=== PATIENT | male | born 1930 | race Caucasian/White ===

== ENCOUNTER 2017-01-07 12:28 | Emergency (ER) | payer MEDICARE, OTHER ==
[~2017-01-07] VITALS: Ht 177.8 cm; Wt 75.0 kg
[~2017-01-07 12:28] MED LIST: AMLO10TA2 PO; ASCO10004 PO; ATEN25TA PO; CALC625T13 PO; CIPR250T27 PO; ENOX60SY4 SQ; ENOX80SY5 SQ; GLIP5TAB22 PO; HYDR-3240 PO; METF500T4 PO; OXYC-302 PO; POTA10CA PO; TAMS0.4C2 PO; VITA100022 PO; WARF2.5T73 PO; WARF5TAB7 PO; [UNRECOGNIZED DRUG - OTHER] PO; [UNRECOGNIZED DRUG - OTHER] PO
[2017-01-07 13:49] LABS: ASPARTATE AMINO TRANSFERASE 5 U/L (15-37); BLOOD UREA NITROGEN 71 mg/dL (7-18)
[2017-01-07 13:58] LABS: DIFF TOTAL CELLS COUNTED 100 CELL DIFF
[2017-01-07 13:59] LABS: VERIFY COUNTS? YES
[2017-01-07 14:00] LABS: ANISOCYTOSIS 1+; HYPOCHROMIA 1+; MICROCYTOSIS 1+
[2017-01-07 14:02] LABS: LARGE PLATELETS 1+
[2017-01-07 15:20] VITALS: BP 148/55
== END 2017-01-07 15:53 | disposition home or self-care (01) ==
LOC: ED 15:40
DX: M17.12 Unilateral primary osteoarthritis, left knee (principal); E87.5 Hyperkalemia; M10.9 Gout, unspecified; N18.9 Chronic kidney disease, unspecified; Z86.718 Personal history of other venous thrombosis and embolism; Z85.9 Personal history of malignant neoplasm, unspecified
CPT/HCPCS: 36415; 80053; 84550; 85025

== ENCOUNTER 2017-02-10 09:20 | Inpatient (IN) | payer MEDICARE ==
[~2017-02-10] VITALS: Ht 177.8 cm; Wt 87.7 kg
[2017-02-10] MEDS ORDERED: SODIUM CHLORIDE 0.9% 1,000 ML IV ONE (09:26)
[2017-02-10] MEDS ORDERED: SODIUM CHLORIDE FLUSH 10ML SYR IVF ONE (09:30)
[2017-02-10 10:49] LABS: ASPARTATE AMINO TRANSFERASE 17 U/L (15-37)
[2017-02-10 10:51] LABS: BLOOD UREA NITROGEN 134 mg/dL (7-18)
[2017-02-10] MEDS ORDERED: CALCIUM GLUCONATE 0.46MEQ/1ML IVPush ONE (11:00)
[2017-02-10] MEDS ORDERED: SODIUM ACETATE 150 MEQ in DEXTROSE 5% 1,000 ML IV SCH (11:00)
[2017-02-10 11:06] LABS: ANISOCYTOSIS 1+; MICROCYTOSIS 1+; POIKILOCYTOSIS 1+
[2017-02-10] MEDS ORDERED: LEVO88TA4 PO (11:27)
[2017-02-10] MEDS ORDERED: CALCIUM GLUCONATE 4.6 MEQ in SODIUM CHLORIDE 0.9% 50 ML IV ONE (11:30)
[2017-02-10 13:03] VITALS: BP 114/58
[2017-02-10] MEDS ORDERED: POLYETHYLENE GLYCOL 17 GM PACKET PO PRN (13:30)
[2017-02-10] MEDS ORDERED: BISACODYL 10 MG SUPP PR PRN (13:30)
[2017-02-10] MEDS ORDERED: ACETAMINOPHEN 325 MG TABLET PO PRN (13:30)
[2017-02-10] MEDS ORDERED: DOCUSATE 100 MG CAPSULE PO PRN (13:30)
[2017-02-10 16:17] LABS: BLOOD UREA NITROGEN 134 mg/dL (7-18)
[2017-02-10] MEDS: INSULIN ASPART 100 UNITS/ML, PEN SQ-INSULIN SCH ×2 (17:33→21:30)
[2017-02-10] MEDS: HEPARIN 5,000 UNITS/ML, 1ML SQ SCH (17:33)
[2017-02-10] MEDS: SODIUM ACETATE 150 MEQ in DEXTROSE 5% 1,000 ML IV SCH (19:09)
[2017-02-10 19:17] VITALS: BP 122/67
[2017-02-11] MEDS: HEPARIN 5,000 UNITS/ML, 1ML SQ SCH ×4 (01:18→17:00)
[2017-02-11] MEDS: SODIUM ACETATE 150 MEQ in DEXTROSE 5% 1,000 ML IV SCH ×4 (01:18→23:15)
[2017-02-11 02:17] VITALS: BP 124/63
[2017-02-11] MEDS: LEVOTHYROXINE 88 MCG TABLET PO SCH (05:52)
[2017-02-11 06:23] LABS: ASPARTATE AMINO TRANSFERASE 8 U/L (15-37)
[2017-02-11 06:32] LABS: BLOOD UREA NITROGEN 116 mg/dL (7-18)
[2017-02-11] MEDS: INSULIN ASPART 100 UNITS/ML, PEN SQ-INSULIN SCH ×4 (08:10→20:45)
[2017-02-11 08:47] VITALS: BP 119/57
[2017-02-11 14:46] VITALS: BP 116/75
[2017-02-11 15:12] LABS: OCCBLD OBC PASS
[2017-02-11] MEDS ORDERED: MAGNESIUM SULFATE PMX 2GM/50ML 50 ML IV ONE (18:00)
[2017-02-11 19:27] VITALS: BP 119/60
[2017-02-12] VITALS (12 sets, daily range): BP systolic 125–152; BP diastolic 57–78
[2017-02-12] MEDS: HEPARIN 5,000 UNITS/ML, 1ML SQ SCH ×3 (01:00→17:00)
[2017-02-12] MEDS ORDERED: TRAZODONE 50MG TABLET PO ONE (01:30)
[2017-02-12] MEDS: SODIUM ACETATE 150 MEQ in DEXTROSE 5% 1,000 ML IV SCH (04:34)
[2017-02-12] MEDS: LEVOTHYROXINE 88 MCG TABLET PO SCH (04:47)
[2017-02-12 05:43] LABS: PTH INTACT INTERPRETATION ** Comment **
[2017-02-12 06:09] LABS: BLOOD UREA NITROGEN 82 mg/dL (7-18)
[2017-02-12 06:14] LABS: ASPARTATE AMINO TRANSFERASE 8 U/L (15-37)
[2017-02-12 07:14] LABS: PARATHYROID HORMONE INTACT 221.2 pg/mL (14-72)
[2017-02-12] MEDS: INSULIN ASPART 100 UNITS/ML, PEN SQ-INSULIN SCH ×4 (08:24→20:56)
[2017-02-12] MEDS ORDERED: DARBEPOETIN 100 MCG/ML SQ SCH (10:30)
[2017-02-12] MEDS ORDERED: ERGOCALCIFEROL 50,000 UNIT CAPSULE PO SCH (10:30)
[2017-02-12] MEDS: SODIUM CHLORIDE 0.9% 1,000 ML IV SCH (16:48)
[2017-02-13] MEDS: HEPARIN 5,000 UNITS/ML, 1ML SQ SCH ×4 (00:30→23:59)
[2017-02-13 02:46] VITALS: BP 131/67
[2017-02-13] MEDS: SODIUM CHLORIDE 0.9% 1,000 ML IV SCH ×2 (02:50→13:52)
[2017-02-13 02:51] LABS: OCCBLD OBC PASS
[2017-02-13 05:16] LABS: ASPARTATE AMINO TRANSFERASE 13 U/L (15-37); BLOOD UREA NITROGEN 67 mg/dL (7-18)
[2017-02-13] MEDS: LEVOTHYROXINE 88 MCG TABLET PO SCH (06:25)
[2017-02-13 07:00] VITALS: BP 114/63
[2017-02-13] MEDS: INSULIN ASPART 100 UNITS/ML, PEN SQ-INSULIN SCH ×4 (07:00→20:05)
[2017-02-13 13:28] VITALS: BP 130/71
[2017-02-13 18:11] VITALS: BP 143/66
[2017-02-14 00:59] VITALS: BP 101/49
[2017-02-14] MEDS: LEVOTHYROXINE 88 MCG TABLET PO SCH (05:54)
[2017-02-14 06:02] LABS: ASPARTATE AMINO TRANSFERASE 9 U/L (15-37); BLOOD UREA NITROGEN 58 mg/dL (7-18)
[2017-02-14] MEDS: INSULIN ASPART 100 UNITS/ML, PEN SQ-INSULIN SCH ×4 (07:00→21:13)
[2017-02-14 07:20] VITALS: BP 133/56
[2017-02-14] MEDS: SODIUM CHLORIDE 0.9% 1,000 ML IV SCH ×3 (08:58→17:30)
[2017-02-14] MEDS: CALCITRIOL 0.25 MCG CAPSULE PO SCH (08:58)
[2017-02-14] MEDS: HEPARIN 5,000 UNITS/ML, 1ML SQ SCH ×2 (08:59→17:31)
[2017-02-14 12:15] VITALS: BP 151/83
[2017-02-14 20:00] VITALS: BP 156/64
[2017-02-14] MEDS: SODIUM BICARBONATE 650 MG TABLET PO SCH (21:13)
[2017-02-15] MEDS: HEPARIN 5,000 UNITS/ML, 1ML SQ SCH ×3 (01:08→17:55)
[2017-02-15 02:00] VITALS: BP 146/81
[2017-02-15] MEDS: SODIUM CHLORIDE 0.9% 1,000 ML IV SCH ×3 (03:22→20:06)
[2017-02-15] MEDS: LEVOTHYROXINE 88 MCG TABLET PO SCH (05:24)
[2017-02-15 06:11] LABS: BLOOD UREA NITROGEN 49 mg/dL (7-18)
[2017-02-15 06:29] LABS: DIFF TOTAL CELLS COUNTED 100 CELL DIFF
[2017-02-15 06:31] LABS: VERIFY COUNTS? YES
[2017-02-15 06:33] LABS: ANISOCYTOSIS 2+; SCHISTOCYTES 1+; SPHEROCYTES 1+
[2017-02-15 06:34] LABS: POLYCHROMASIA 1+
[2017-02-15 06:35] LABS: LARGE PLATELETS 1+
[2017-02-15] MEDS: INSULIN ASPART 100 UNITS/ML, PEN SQ-INSULIN SCH ×4 (07:00→20:42)
[2017-02-15 07:12] VITALS: BP 127/48
[2017-02-15] MEDS: SODIUM BICARBONATE 650 MG TABLET PO SCH ×2 (08:45→20:42)
[2017-02-15] MEDS ORDERED: SODIUM PHOSPHATE 20 MMOL in SODIUM CHLORIDE 0.9% 500 ML IV ONE (09:00)
[2017-02-15 13:12] VITALS: BP 158/63
[2017-02-15 20:00] VITALS: BP 166/63
[2017-02-16] MEDS: HEPARIN 5,000 UNITS/ML, 1ML SQ SCH ×2 (01:32→08:19)
[2017-02-16 02:00] VITALS: BP 128/54
[2017-02-16 05:40] LABS: BLOOD UREA NITROGEN 47 mg/dL (7-18)
[2017-02-16] MEDS: LEVOTHYROXINE 88 MCG TABLET PO SCH (05:48)
[2017-02-16] MEDS: SODIUM CHLORIDE 0.9% 1,000 ML IV SCH (05:48)
[2017-02-16 06:12] LABS: DIFF TOTAL CELLS COUNTED 100 CELL DIFF
[2017-02-16 06:15] LABS: ANISOCYTOSIS 2+; POLYCHROMASIA 1+; VERIFY COUNTS? YES
[2017-02-16 06:17] LABS: LARGE PLATELETS 1+; SCHISTOCYTES 1+
[2017-02-16 06:51] VITALS: BP 157/66
[2017-02-16] MEDS: INSULIN ASPART 100 UNITS/ML, PEN SQ-INSULIN SCH ×2 (07:00→11:42)
[2017-02-16] MEDS: CALCITRIOL 0.25 MCG CAPSULE PO SCH (08:14)
[2017-02-16] MEDS: SODIUM BICARBONATE 650 MG TABLET PO SCH (08:16)
[2017-02-16] MEDS ORDERED: CEFDINIR 300 MG CAPSULE PO SCH (09:00)
[2017-02-16] MEDS ORDERED: CEFD300C37 PO (13:42)
[2017-02-16] MEDS ORDERED: SODI650T PO (13:47)
[2017-02-16 13:49] VITALS: BP 165/69
[2017-02-16] MEDS ORDERED: SODIUM BICARBONATE 650 MG TABLET PO SCH (21:00)
== END 2017-02-16 15:05 | DRG 682 ==
LOC: ED 10:59 → EDIP 11:00 → ED 11:14 → 4EST 12:15
PROVIDERS: ADMIT Hospitalist; ATTEND Hospitalist
PROC: 30233N1 Transfusion of Nonautologous Red Blood Cells into Peripheral Vein, Percutaneous Approach (ICD-10-PCS; principal; 2017-02-12)
DX: N17.0 Acute kidney failure with tubular necrosis (principal); E43 Unspecified severe protein-calorie malnutrition; E87.2 Acidosis; I13.0 Hypertensive heart and chronic kidney disease with heart failure and stage 1 through stage 4 chronic kidney disease, or unspecified chronic kidney disease; I50.30 Unspecified diastolic (congestive) heart failure; E46 Unspecified protein-calorie malnutrition; N18.4 Chronic kidney disease, stage 4 (severe); E87.5 Hyperkalemia; E11.649 Type 2 diabetes mellitus with hypoglycemia without coma; D50.0 Iron deficiency anemia secondary to blood loss (chronic); E03.9 Hypothyroidism, unspecified; D63.8 Anemia in other chronic diseases classified elsewhere; E11.22 Type 2 diabetes mellitus with diabetic chronic kidney disease; E86.9 Volume depletion, unspecified; E87.8 Other disorders of electrolyte and fluid balance, not elsewhere classified; M10.9 Gout, unspecified; N40.0 Benign prostatic hyperplasia without lower urinary tract symptoms; Z66 Do not resuscitate; Z85.51 Personal history of malignant neoplasm of bladder; M19.90 Unspecified osteoarthritis, unspecified site; Z88.8 Allergy status to other drugs, medicaments and biological substances
CPT/HCPCS: 36415; 76770; 80048; 80053; 80069; 81001; 82272; 82306; 82310; 82330; 82607; 82746; 82962; 83540; 83550; 83605; 83735; 83970; 84100; 84436; 84443; 84550; 85014; 85018; 85025; 86850; 86900; 86923; 87077; 87086; 87324; 93005; 93306; 96361; 96365; 96366; 96368; J0610; J0881; J1644; J1815; J7070; J3475; J7030; J7040; P9016

== ENCOUNTER 2018-06-18 15:06 | Emergency (ER) | payer MEDICARE ==
[~2018-06-18] VITALS: Ht 177.8 cm; Wt 71.6 kg
[~2018-06-18 15:06] MED LIST changes: -AMLO10TA2 PO; +AMLO10TA6 PO; +CEFD300C37 PO; +LEVO88TA4 PO; +METF500T17 PO; -METF500T4 PO; +SODI650T PO; +WARF-36 PO; -WARF5TAB7 PO
[2018-06-18 15:38] LABS: BASOPHILS # (AUTO) 0.09 x10^3/uL (0-0.1); BASOPHILS % (AUTO) 2 % (0-1); EOSINOPHILS # (AUTO) 0.03 x10^3/uL (0-0.4); EOSINOPHILS % (AUTO) 1 % (1-7); LYMPHOCYTES # (AUTO) 1.28 x10^3/uL (1-3.4); LYMPHOCYTES % (AUTO) 25 % (22-44); MD NO; MEAN CORPUSCULAR HEMOGLOBIN 27.9 pg (27.5-34.5); MEAN CORPUSCULAR VOLUME 84.5 fL (81-97); MEAN PLATELET VOLUME 9.2 fL (7.4-10.4); MONOCYTES # (AUTO) 0.17 x10^3/uL (0.2-0.8); MONOCYTES % (AUTO) 3 % (2-9); NEUTROPHILS # (AUTO) 3.54 x10^3/uL (1.8-6.8); NEUTROPHILS % (AUTO) 69 % (42-75); PLATELET COUNT 208 x10^3/uL (130-400); RED BLOOD COUNT 3.84 x10^6/uL (4.38-5.82); RED CELL DISTRIBUTION WIDTH 20.2 % (9.4-14.8)
[2018-06-18 15:51] LABS: ALANINE AMINOTRANSFERASE 22 U/L (12-78); ALBUMIN 2.3 g/dL (3.4-5.0); ANION GAP 14 mmol/L (5-15); CHLORIDE 107 mmol/L (98-107); CREATININE 2.88 mg/dL (0.7-1.3)
[2018-06-18 15:53] LABS: ALKALINE PHOSPHATASE 83 U/L (45-117); BILIRUBIN,TOTAL 0.2 mg/dL (0.2-1.0); TOTAL PROTEIN 7.8 g/dL (6.4-8.2)
[2018-06-18] MEDS ORDERED: AMPICILLIN/SULBACTAM 1,500 MG in SODIUM CHLORIDE 0.9% 50 ML IV ONE (15:57)
[2018-06-18] MEDS ORDERED: SODIUM CHLORIDE FLUSH 10ML SYR IVF ONE (16:00)
[2018-06-18] MEDS ORDERED: BACITRACIN ZINC OINT 500U/GM, 0.9 GM ONE (17:21)
[2018-06-18 17:31] VITALS: BP 145/48
== END 2018-06-18 17:36 | disposition home or self-care (01) ==
LOC: ED 15:47
DX: S92.425A Nondisplaced fracture of distal phalanx of left great toe, initial encounter for closed fracture (principal); L03.032 Cellulitis of left toe; I10 Essential (primary) hypertension; E11.649 Type 2 diabetes mellitus with hypoglycemia without coma; X58.XXXA Exposure to other specified factors, initial encounter; Y93.89 Activity, other specified; Y92.89 Other specified places as the place of occurrence of the external cause; Y99.8 Other external cause status
CPT/HCPCS: 36415; 73660; 80053; 85025; 96365; 99285; J0295

== ENCOUNTER 2018-07-03 14:13 | Emergency (ER) | payer MEDICARE ==
[~2018-07-03] VITALS: Ht 177.8 cm; Wt 70.6 kg
[2018-07-03 14:17] VITALS: BP 122/61
== END 2018-07-03 15:34 | disposition home or self-care (01) ==
LOC: ED 14:46
DX: R51 Headache (principal); J01.10 Acute frontal sinusitis, unspecified; J01.00 Acute maxillary sinusitis, unspecified; I10 Essential (primary) hypertension; E11.649 Type 2 diabetes mellitus with hypoglycemia without coma; M10.9 Gout, unspecified; Z86.718 Personal history of other venous thrombosis and embolism
CPT/HCPCS: 70450; 99284

== ENCOUNTER 2018-11-27 21:41 | Emergency (ER) | payer MEDICARE ==
[~2018-11-27] VITALS: Ht 177.8 cm; Wt 62.6 kg
[~2018-11-27 21:41] MED LIST changes: -AMLO10TA6 PO; +AMLO10TA8 PO; +WARF2.5T32 PO; -WARF2.5T73 PO
--- NOTE | 2018-11-27 22:10 | NUR ---
SEE TRIAGE NOTE. PT PLACED IN GOWN AND ON HEART MONITOR, BP CUFF, PULSE OX. L NARE BLEEDING INTERMITTENTLY, OXYGEN PLACED IN MOUTH UNTIL BLEEDING CONTROLLED. PT WITH MULTIPLE BRUISES ON BODY, REPORTS MULTIPLE FALLS RECENTLY WITH LAST THREE DAYS AGO-FALL IN KITCHEN, DENIES HEAD INJURY. CXR COMPLETED, PT TO CT. REPORT TO [facility].
--- NOTE | 2018-11-27 22:13 | NUR ---
PT IN RADIOLOGY AT THIS TIME
--- NOTE | 2018-11-27 22:28 | NUR ---
REPORT FROM [facility]. PT IN CT.
--- NOTE | 2018-11-27 23:00 | NUR ---
ATTEMPTED PIV 2 X WITH NO SUCCESS. JOSÉ MIGUEL RN AT BEDSIDE FOR PIV PLACEMENT. UA WALKED TO LAB. LAB DRAWING BLOOD. CALL LIGHT IN REACH
[2018-11-27 23:14] LABS: ALANINE AMINOTRANSFERASE 15 U/L (12-78); ALBUMIN 2.3 g/dL (3.4-5.0); ANION GAP 14 mmol/L (5-15); CALCIUM 8.1 mg/dL (8.5-10.1); CHLORIDE 107 mmol/L (98-107); CREATININE 4.05 mg/dL (0.7-1.3)
[2018-11-27 23:18] LABS: ALKALINE PHOSPHATASE 89 U/L (45-117); BILIRUBIN,TOTAL 0.1 mg/dL (0.2-1.0); TOTAL PROTEIN 7.5 g/dL (6.4-8.2)
[2018-11-27] MEDS ORDERED: SODIUM CHLORIDE 0.9% 1,000ML IVBOLUS ONE (23:30)
--- NOTE | 2018-11-27 23:34 | NUR ---
PT GIVEN SIP OF WATER. PT SWALLOWED WITH NO DIFFICULTY. MD AT BEDSIDE
[2018-11-27 23:41] LABS: CULTURE INDICATED? YES; MICROSCOPIC INDICATED
[2018-11-28] MEDS ORDERED: VANCOMYCIN PER PHARMACY IV ONE
[2018-11-28] MEDS ORDERED: PIPERACILLIN/TAZO/PMX 3.375GM 50 ML IVPB ONE
[2018-11-28] MEDS ORDERED: SODIUM CHLORIDE 0.9% 1,000ML IVBOLUS ONE (00:30)
--- NOTE | 2018-11-28 00:38 | NUR ---
BREAK RN. PT BP 85/46 AT 0004. ERP AWARE, ORDERS PLACED. 2ND IV STARTED. ORDERED FLUIDS HANGING ALONG WITH ABX STARTED. BLOOD CULTURES HAVE ALREADY BEEN DRAWN PT IS BANDED. PT MORE LETHARGIC THEN EARLIER PER PT . ERP AWARE OF THIS WELL. PT REPOSITIONED. BILAT BEDRAILS UP.
--- NOTE | 2018-11-28 00:50 | NUR ---
PT PLACED ONTO WEIGHING BED FOR ACCURATE WEIGHT FOR ORDERED MEDS. PHARM CALLED WITH RESULTS.
[2018-11-28] MEDS ORDERED: ONDANSETRON 2MG/ML, 2ML IVPush PRN (01:00)
[2018-11-28 01:05] LABS: MEAN CORPUSCULAR HEMOGLOBIN 28.4 pg (27.5-34.5); MEAN CORPUSCULAR HGB CONC 33.3 g/dL (33.2-36.2); MEAN CORPUSCULAR VOLUME 85.3 fL (81-97); MEAN PLATELET VOLUME 8.3 fL (7.4-10.4); RED BLOOD COUNT 2.09 x10^6/uL (4.38-5.82); RED CELL DISTRIBUTION WIDTH 23.6 % (9.4-14.8)
[2018-11-28] MEDS ORDERED: LORazepam 2 MG/ML, 1ML ONE (01:05)
[2018-11-28 01:07] LABS: PLATELET COUNT 25 x10^3/uL (130-400)
[2018-11-28 01:09] LABS: MD YES
[2018-11-28] MEDS ORDERED: SCOPOLAMINE PATCH, 1.5MG PATCH.TD72 TD STA (01:18)
[2018-11-28 01:21] VITALS: BP 102/57
--- NOTE | 2018-11-28 01:23 | NUR ---
pt moved to t4. PT AT BEDSIDE. PT ON 7L PER OXY MASK.
[2018-11-28] MEDS ORDERED: LORazepam 2 MG/ML, 1ML IVPush ONE (01:30)
[2018-11-28] MEDS ORDERED: PROCHLORPERAZINE 5 MG/ML, 2ML IVPush PRN (01:30)
[2018-11-28] MEDS ORDERED: HEPARIN 5,000 UNITS/ML, 1ML IV ONE (01:30)
[2018-11-28] MEDS ORDERED: HEPARIN 5,000 UNITS/ML, 1ML IV PRN (01:30)
[2018-11-28] MEDS ORDERED: VANCOMYCIN PMX 1GM/200ML 200 ML IV ONE (01:30)
[2018-11-28] MEDS ORDERED: PHARMACOKINETIC CONSULTATION MC ONE (01:30)
[2018-11-28] MEDS ORDERED: HEPARIN 25,000 UNITS/500ML PMX 500 ML IV PRN (01:30)
[2018-11-28] MEDS ORDERED: MORPHINE SULFATE 4 MG/ML, 1ML IVPush PRN (01:30)
[2018-11-28 01:43] LABS: BAND#(MANUAL) 2.83 x10^3/uL; BANDS%(MANUAL) 2 % (0-7); BASOS#(MANUAL) 2.83 x10^3/uL (0-0.1); BASOS% (MANUAL) 2 % (0-1); EOS#(MANUAL) 1.42 x10^3/uL (0.0-0.4); EOS% (MANUAL) 1 % (1-7); LYMPH#(MANUAL) 24.06 x10^3/uL (1-3.4); LYMPHS% (MANUAL) 17 % (22-44); METAMYELOCYTES# (MANUAL) 4.25 x10^3/uL (0-0); METAMYELOCYTES% (MANUAL) 3 % (0-1); MONOS#(MANUAL) 14.15 x10^3/uL (0.3-2.7); MONOS% (MANUAL) 10 % (2-9); MYELOCYTES# (MANUAL) 2.83 x10^3/uL (0-0); MYELOCYTES% (MANUAL) 2 % (0-0); NRBC % (MANUAL) 2 % (0-1); OTHER CELLS # (MANUAL) 60.85 x10^3/uL (0-0); OTHER CELLS % (MANUAL) 43 % (0-0); REACTIVE LYMPHS # (MANUAL) 1.42 x10^3/uL (0-0); REACTIVE LYMPHS % (MANUAL) 1 % (0-0); SEG#(MANUAL) 26.89 x10^3/uL (1.8-6.8); SEGS% (MANUAL) 19 % (42-75)
[2018-11-28 01:44] LABS: <PLATELET ESTIMATE> DECREASED; ANISOCYTOSIS 1+; HYPOCHROMIA 1+; HYPOGRAN PLTS 1+
--- NOTE | 2018-11-28 01:44 | NUR ---
PT ERP AND ADMITTING HOSPITALIST, HOLD HEPARIN DRIP AT THIS TIME.
--- NOTE | 2018-11-28 02:13 | NUR ---
SPOKE WITH DOMINIC AT [facility] OFFICE. WILL NOT BE A CORONERS CASE. PER DOMINIC KHAN [place] [facility] [place] [facility]. COPY [facility]ASER CASE#[id number]
--- NOTE | 2018-11-28 02:39 | NUR ---
SPOKE WITH [facility] #[phone], WHO STATED [facility]ISS[facility] NETWORK WILL CALL FOR ACCEPTANCE OR IF DECLINED.
== END 2018-11-28 04:17 ==
LOC: ED 23:40 → UNDOADMIN 11-28 00:36 → EDIP 11-28 00:36 → ED 11-28 04:17
DX: I21.4 Non-ST elevation (NSTEMI) myocardial infarction (principal); I46.8 Cardiac arrest due to other underlying condition; C95.90 Leukemia, unspecified not having achieved remission; J96.01 Acute respiratory failure with hypoxia; G93.41 Metabolic encephalopathy; D63.0 Anemia in neoplastic disease; E87.2 Acidosis; E11.22 Type 2 diabetes mellitus with diabetic chronic kidney disease; I12.0 Hypertensive chronic kidney disease with stage 5 chronic kidney disease or end stage renal disease; N18.6 End stage renal disease; Z86.718 Personal history of other venous thrombosis and embolism; R41.82 Altered mental status, unspecified
CPT/HCPCS: 36415; 70450; 71045; 80053; 81001; 83605; 84145; 84484; 85025; 85520; 87040; 87077; 87086; 87186; 93005; 96361; 96365; 96368; 96375; 99291; J2060; J2543; J3370; J7030; 99285